=== PATIENT | male | born 1975 | race Caucasian/White ===

== ENCOUNTER 2022-08-20 21:51 | Emergency (ER) | payer OTHER ==
[~2022-08-20] VITALS: Ht 177.8 cm; Wt 97.5 kg
[2022-08-20 22:00] VITALS: BP 131/80
--- NOTE | 2022-08-20 22:00 | NUR ---
BIBSELF C/O RIGHT HAND PAIN AND SWELLING
[2022-08-20] MEDS ORDERED: IBUPROFEN 400 MG TABLET ONE (22:12)
--- NOTE | 2022-08-20 22:23 | NUR ---
Patient discharged to home in stable condition. Written and verbal after care instructions given. Patient verbalizes understanding of instruction. Pt ambulatory with a steady gait
[2022-08-20] MEDS ORDERED: IBUPROFEN 400 MG TABLET PO ONE (22:30)
== END 2022-08-20 22:24 | disposition home or self-care (01) ==
LOC: ER 21:54
DX: S60.221A Contusion of right hand, initial encounter (principal); Z60.2 Problems related to living alone; W22.01XA Walked into wall, initial encounter; Y93.89 Activity, other specified; Y92.89 Other specified places as the place of occurrence of the external cause; Y99.8 Other external cause status
CPT/HCPCS: 73130-TC

== ENCOUNTER 2022-09-16 19:31 | Emergency (ER) | payer OTHER ==
[~2022-09-16] VITALS: Ht 175.3 cm; Wt 90.7 kg
[2022-09-16 20:19] VITALS: BP 130/70
--- NOTE | 2022-09-16 22:17 | NUR ---
Patient discharged to home in stable condition. Written and verbal after care instructions given. Patient verbalizes understanding of instruction.
== END 2022-09-16 22:18 | disposition home or self-care (01) ==
LOC: ER 19:32
DX: M79.641 Pain in right hand (principal); F17.200 Nicotine dependence, unspecified, uncomplicated
CPT/HCPCS: 73130-TC